=== PATIENT | female | born 1990 | race American Indian/Alaskan Native ===

== ENCOUNTER 2016-11-07 12:37 | Outpatient (CLI) | payer MEDICAID ==
[2016-11-07] MEDS ORDERED: LACTATED RINGERS 500 ML IV ONE (17:00)
== END 2016-11-07 15:43 | disposition home or self-care (01) ==
LOC: LAB 12:37 → TRG 12:37
PROVIDERS: ATTEND Advanced Practice Midwife
DX: O36.1130 Maternal care for Anti-A sensitization, third trimester, not applicable or unspecified (principal); Z3A.32 32 weeks gestation of pregnancy
CPT/HCPCS: 86850; 86900; 86901; 96372; J2790

== ENCOUNTER 2016-12-10 22:52 | Outpatient (CLI) | payer MEDICAID ==
[2016-12-10] MEDS ORDERED: LACTATED RINGERS 1,000 ML IV ONE (22:58)
[2016-12-10 23:05] VITALS: BP 121/69
[2016-12-10 23:51] LABS: Bilirubin,Urine NEG (Negative); Blood,Urine NEG (Negative); Ketones,Urine NEG (Negative); Leukocyte Esterase,Urine NEG (Negative); Mucus,Urine FEW /HPF; Nitrite,Urine NEG (Negative); Protein,Urine <15 mg/dL mg/dL (Negative); Urobilinogen,Urine < 2.0 mg/dL (<2.0)
== END 2016-12-11 00:40 | disposition home or self-care (01) ==
LOC: TRG 22:52
PROVIDERS: ATTEND Obstetrics & Gynecology
DX: O26.893 Other specified pregnancy related conditions, third trimester (principal); R10.9 Unspecified abdominal pain; Z3A.32 32 weeks gestation of pregnancy
CPT/HCPCS: 59025; 81001; 96360; J7120

== ENCOUNTER 2017-02-03 19:01 | Outpatient (CLI) | payer MEDICAID ==
[2017-02-03 19:20] VITALS: BP 105/65
--- NOTE | 2017-02-04 08:20 | Ultrasound Report ---
ULTRASOUND OB LIMITED History: well being Technique: Transabdominal ultrasound with Doppler interrogation. Gestation: Single Position: Cephalic Amniotic Fluid: Normal MAHAMED = 8.1 cm Heart Rate: 140 BPM
--- NOTE | 2017-02-04 08:20 | Ultrasound Report ---
ULTRASOUND BIOPHYSICAL PROFILE: History: well being Technique: Transabdominal ultrasound with Doppler interrogation. 2 - breathing movements 2 - movements 2 - posture and tone 2 - Qualitative amniotic fluid volume 8 - TOTAL SCORE OF POSSIBLE 8 Heart Rate (bpm) 140
== END 2017-02-03 21:00 | disposition home or self-care (01) ==
LOC: TRG 19:01
PROVIDERS: ATTEND Obstetrics & Gynecology
DX: O48.0 Post-term pregnancy (principal); Z87.891 Personal history of nicotine dependence; Z3A.40 40 weeks gestation of pregnancy
CPT/HCPCS: 59025; 76815; 76819

== ENCOUNTER 2017-08-02 15:07 | Outpatient (CLI) | payer MEDICAID ==
[2017-08-02 15:53] LABS: Alanine Aminotransferase 8 units/L (7-56); Albumin 3.1 g/dL (3.9-5); Albumin/Globulin Ratio 0.9 %; Alkaline Phosphatase 81 units/L (35-129); Anion Gap 18 mmol/L; BUN/Creatinine Ratio 16; Blood Urea Nitrogen 8 mg/dL (7-17); Carbon Dioxide 21 mmol/L (22-30); Chloride 100.7 mmol/L (98-107); Glucose 96 mg/dL (65-100); Lipase 22 units/L (13-60); Potassium 3.9 mmol/L (3.6-5.0); Sodium 136 mmol/L (137-145); Total Protein 6.5 g/dL (6.3-8.2)
[2017-08-02 15:54] LABS: Basophils % (Auto) 0.4 % (0.0-1.8); Eosinophils % (Auto) 0.4 % (0.0-4.3); Hematocrit 35.3 % (30.3-42.9); Hemoglobin 11.9 gm/dl (10.1-14.3); Mean Corpuscular HGB Conc 34 % (30-34); Mean Corpuscular Hemoglobin 31 pg (28-32); Mean Corpuscular Volume 90 fl (79-97); Platelet Count 245 K/mm3 (140-440); Red Cell Distribution Width 14.2 % (13.2-15.2); White Blood Count 8.3 K/mm3 (4.5-11.0)
[2017-08-02 15:55] LABS: Bilirubin,Urine NEG (Negative); Blood,Urine NEG (Negative); Ketones,Urine NEG (Negative); Leukocyte Esterase,Urine SM (Negative); Mucus,Urine FEW /HPF; Nitrite,Urine NEG (Negative); Protein,Urine <15 mg/dL mg/dL (Negative)
[2017-08-02] MEDS ORDERED: LACTATED RINGERS 1,000 ML IV ONE (19:57)
[2017-08-02 20:19] VITALS: BP 107/61
--- NOTE | 2017-08-02 20:53 | Ultrasound Report ---
FINAL REPORT EXAM: US OB > = 14 WEEKS FETUS HISTORY: no care- abdominal pain TECHNIQUE: Obstetrical sonographic imaging Comparison: None FINDINGS: Sonographic images demonstrate single live intrauterine gestation in transverse left maternal lie. Subjective amniotic assessment is lower limits normal. Anterior grade 0 placenta without evidence of previa. Cervical length measures 3.2 centimeters. heart rate measures 150 beats per minute. anatomic survey with estimated gestational age as follows: Biparietal diameter 4.5 centimeters, 19 weeks 3 days Head circumference 16.7 centimeters, 19 weeks 2 days Abdominal circumference 14.6 centimeters, 19 weeks 6 days Femur length 3.0 centimeters, 19 weeks 2 days Average sonographic gestational age 19 weeks 3 days with estimated due date of 12/24/2017. HC/AC 1.15 Per the Hadlock criteria, estimated weight 306 grams. IMPRESSION: Single live intrauterine gestation at 19 weeks 3 days with estimated due date of 12/24/2017. Transverse lie, maternal left. Anterior placenta without previa. Subjective amniotic fluid assessment is lower limits normal. Cervical length measures 3.2 centimeters.
== END 2017-08-02 20:28 | disposition home or self-care (01) ==
LOC: EDSTATUS 19:41 → TRG 19:46
PROVIDERS: ATTEND Obstetrics & Gynecology
DX: O26.892 Other specified pregnancy related conditions, second trimester (principal); R10.9 Unspecified abdominal pain; O32.2XX0 Maternal care for transverse and oblique lie, not applicable or unspecified; Z3A.19 19 weeks gestation of pregnancy
CPT/HCPCS: 36415; 76805; 80053; 81001; 83690; 84702; 85025

== ENCOUNTER 2018-01-26 11:39 | Emergency (ER) | payer OTHER, MEDICAID ==
[2018-01-26 12:04] VITALS: BP 100/81
[2018-01-26] MEDS ORDERED: MOTRIN PO ONE (12:24)
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
[2018-01-26] MEDS ORDERED: MOTRIN ONE (14:46)
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
== END 2018-01-26 15:33 | disposition home or self-care (01) ==
LOC: ED 11:39
DX: S39.012A Strain of muscle, fascia and tendon of lower back, initial encounter (principal); S13.4XXA Sprain of ligaments of cervical spine, initial encounter; F17.200 Nicotine dependence, unspecified, uncomplicated; V49.49XA Driver injured in collision with other motor vehicles in traffic accident, initial encounter; Y93.89 Activity, other specified; Y92.89 Other specified places as the place of occurrence of the external cause; Y99.8 Other external cause status
CPT/HCPCS: 72040; 72100

== ENCOUNTER 2019-01-15 02:56 | Emergency (ER) | payer SELFPAY ==
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
[2019-01-15] MEDS ORDERED: DILAUDID IV ONE ×2 (03:18→05:40)
[2019-01-15 03:50] LABS: Hematocrit 39.6 % (30.3-42.9); Hemoglobin 13.4 gm/dl (10.1-14.3); Mean Corpuscular HGB Conc 34 % (30-34); Mean Corpuscular Volume 92 fl (79-97); Platelet Count 227 K/mm3 (140-440); Red Blood Count 4.31 M/mm3 (3.65-5.03); Red Cell Distribution Width 14.6 % (13.2-15.2)
[2019-01-15 04:54] LABS: Alanine Aminotransferase 18 units/L (7-56); Albumin 3.8 g/dL (3.9-5); BUN/Creatinine Ratio 18; Blood Urea Nitrogen 14 mg/dL (7-17); Calcium 8.9 mg/dL (8.4-10.2); Hemolysis Index 11
--- NOTE | 2019-01-15 05:34 | Cat Scan Report ---
PROCEDURE: CT CERVICAL SPINE WO CON TECHNIQUE: Computerized tomography of the cervical spine was performed from the skull base to T1 wit hout contrast material. CT DOSE LENGTH PRODUCT: mGycm HISTORY: tomas. face pain. neck pain COMPARISONS: None . FINDINGS: C1-2: No significant abnormality . C2-3: No significant abnormality . C3-4: No significant abnormality . C4-5: No significant abnormality . C5-6: There is minimal bulging of the disc annulus with focal calcification. . C6-7: No significant abnormality . C7-T1: No significant abnormality . Fractures: None . Other: No additional findings . IMPRESSION: Minimal bulging of the C5-C6 disc annulus with focal calcification. No acute process othe rwise. This document is electronically signed by Archie Carson MD., January 15 2019 05:32:53 AM ET
--- NOTE | 2019-01-15 05:39 | Cat Scan Report ---
PROCEDURE: CT FACIAL BONES WO CON TECHNIQUE: Computerized tomography of the facial bones and soft tissues with axial and coronal secti ons performed from the cranial aspect of the frontal sinuses to the caudal portion of the mandible wi thout contrast material. Automated exposure control, adjustment of mA and/or kV according to patient size, or iterative reconstruction dose optimization techniques were utilized HISTORY: tomas. face pain. neck pain COMPARISONS: None . FINDINGS: Bones: No significant abnormality . Paranasal sinuses: Mild opacification of the right maxillary sinus . Soft tissues: No significant abnormality . Other: None . IMPRESSION: There is no evidence of an acute facial bone fracture. There is mild opacification of th e right maxillary sinus . This document is electronically signed by Heaven Cason DO., January 15 2019 05:37:41 AM ET
[2019-01-15] MEDS ORDERED: DILAUDID ONE (05:42)
[2019-01-15 07:14] VITALS: BP 132/70
[2019-01-15] MEDS ORDERED: ZOFRAN ONE (10:02)
[2019-01-15] MEDS ORDERED: ZOFRAN IV ONE (10:02)
--- NOTE | 2019-01-20 00:04 | Cat Scan Report ---
PROCEDURE: CT HEAD/BRAIN WO CON TECHNIQUE: Computerized tomography of the head was performed without contrast material. HISTORY: tomas. face pain. neck pain COMPARISONS: None . FINDINGS: Skull and scalp: Normal . Paranasal sinuses: Mild opacification of the left sphenoid sinus . Ventricles and subarachnoid spaces: Normal . Cerebrum: No evidence of hemorrhage, acute infarction or mass . Cerebellum and brainstem: No evidence of hemorrhage, acute infarction or mass . Vasculature: Normal . Other: None . ASPECTS: 10 IMPRESSION: There is no evidence of an acute intracranial process . This document is electronically signed by Heaven Cason DO., January 15 2019 05:10:06 AM ET
== END 2019-01-15 07:13 | disposition home or self-care (01) ==
LOC: ED 02:56
DX: S06.0X1A Concussion with loss of consciousness of 30 minutes or less, initial encounter (principal); G44.319 Acute post-traumatic headache, not intractable; F17.200 Nicotine dependence, unspecified, uncomplicated; F12.10 Cannabis abuse, uncomplicated; Y04.2XXA Assault by strike against or bumped into by another person, initial encounter; Y93.89 Activity, other specified; Y92.89 Other specified places as the place of occurrence of the external cause; Y99.8 Other external cause status
CPT/HCPCS: 36415; 70450; 70486; 72125; 80053; 84703; 85027; 96374; 96375; 96376; 99284; J1170; J2405

== ENCOUNTER 2019-02-28 19:39 | Emergency (ER) | payer SELFPAY ==
--- NOTE | 2019-02-28 19:50 | Event Note ---
ED Screening Note Date of service: 02/28/19 Time: 19:46 ED Screening Note: 28 y/o female comes in reporting that she is preg but does not know when her LMP or how far she is. C/O back pain and abd pain. . This initial assessment/diagnostic orders/clinical plan/treatment(s) is/are subject to change based on patients health status, clinical progression and re- assessment by fellow clinical providers in the ED. Further treatment and workup at subsequent clinical providers discretion. Patient/guardian urged not to elope from the ED as their condition may be serious if not clinically assessed and managed. Initial orders include:
[2019-02-28 20:51] LABS: Bilirubin,Urine NEG (Negative); Blood,Urine NEG (Negative); Color,Urine Yellow (Yellow); Mucus,Urine 1+ /HPF; Protein,Urine <15 mg/dL mg/dL (Negative); Urobilinogen,Urine < 2.0 mg/dL (<2.0); WBC,Urine < 1.0 /HPF (0.0-6.0)
--- NOTE | 2019-02-28 20:53 | Ultrasound Report ---
ULTRASOUND OBSTETRIC INDICATION / CLINICAL INFORMATION: abd pain. Clinical Gestational Age (GA): Unknown TECHNIQUE: Transabdominal. Patient declined transvaginal exam COMPARISON: None available. FINDINGS: GESTATIONAL SAC: Well-defined oval shape and intrauterine in location. YOLK SAC: No significant abnormality. EMBRYO/FETUS: No significant abnormality. - Hissop-Rump Length = 29.7 mm = 9 weeks, 6 day(s). - Heart Rate, beats per minute (if present) = 178 bpm ADNEXA: Left ovary appeared unremarkable. The right ovary was not identified. FREE FLUID: None. ADDITIONAL FINDINGS: None. IMPRESSION: 1. Single, living intrauterine with estimated sonographic age of 9 weeks, 6 day(s). Signer Name: Aidee Llanes MD Signed: 02/28/2019 8:49 PM Workstation Name: [id number]
[2019-02-28] MEDS ORDERED: TYLENOL PO ONE (21:26)
[2019-02-28] MEDS ORDERED: ZOFRAN ODT PO ONE (21:26)
[2019-02-28 21:54] LABS: Basophils % (Auto) 0.3 % (0.0-1.8); Eosinophils % (Auto) 0.3 % (0.0-4.3); Hematocrit 37.2 % (30.3-42.9); Hemoglobin 12.7 gm/dl (10.1-14.3); Lymphocytes # (Auto) 1.9 K/mm3 (1.2-5.4); Lymphocytes % (Auto) 24.4 % (13.4-35.0); Mean Corpuscular HGB Conc 34 % (30-34); Mean Corpuscular Hemoglobin 32 pg (28-32); Mean Corpuscular Volume 93 fl (79-97); Monocytes # (Auto) 0.3 K/mm3 (0.0-0.8); Monocytes % (Auto) 4.1 % (0.0-7.3); Platelet Count 239 K/mm3 (140-440); Red Cell Distribution Width 14.6 % (13.2-15.2)
--- NOTE | 2019-02-28 22:15 | Emergency Department Report ---
ED Abdominal Pain HPI - General Chief Complaint: Abdominal Pain Stated Complaint: PAIN/BACTERIAL INFECTION Time Seen by Provider: 02/28/19 21:10 Source: patient Mode of arrival: Ambulatory Limitations: No Limitations - History of Present Illness Initial Comments: pt is a 28 y/o aaf who presents for dsyperuina , white thick discharge maldorous, now with vaginal spotting after intercourse. pt denies n/v no fever no chills. Pt is G5, P4, A1 MD Complaint: abdominal pain, other Onset/Timin -: week(s) Migration to: no migration Severity scale (0 -10): 7 Quality: burning Consistency: intermittent Improves With: nothing Worsens With: other (intercourse ) Associated Symptoms: denies: nausea, vomiting, dysuria, hematuria - Related Data LMP (females 10-50): other ("unkown" per patient) Home Medications Medication Instructions Recorded Confirmed Last Taken Ergocalciferol [Vitamin D2] 1 cap PO QWEEK 02/07/17 02/07/17 02/04/17 21:00 1 Ferrous Sulfate [Feosol] 325 mg PO BID 02/07/17 02/07/17 02/05/17 09:00 1 Vit-Fe Fumar-FA [ 1 tab PO QDAY 02/07/17 02/07/17 02/05/17 09:00 Vitamin] 1 Previous Rx's Medication Instructions Recorded Last Taken Type Cyclobenzaprine [Flexeril] 10 mg PO QHS PRN #10 tablet 01/26/18 Unknown Rx Ibuprofen [Motrin] 600 mg PO Q8H PRN #30 tablet 01/26/18 Unknown Rx HYDROcodone/APAP 5-325 [[place] 1 each PO Q6HR PRN #12 tablet 01/15/19 Unknown Rx 5/325] Acetaminophen [Acetaminophen TAB] 650 mg PO Q6HR PRN #30 tablet 03/01/19 Unknown Rx metroNIDAZOLE [metroNIDAZOLE GEL 1 applicatio TP QHS 10 Days #1 tube 03/01/19 Unknown Rx 1% TOPICAL] Allergies Allergy/AdvReac Type Severity Reaction Status Date / Time No Known Allergies Allergy Verified 02/28/19 19:48 ED Review of Systems ROS: Stated complaint: PAIN/BACTERIAL INFECTION Other details as noted in HPI Constitutional: denies: chills, fever Eyes: denies: eye pain, eye discharge, vision change ENT: denies: ear pain, throat pain Respiratory: denies: cough, shortness of breath, wheezing Cardiovascular: denies: chest pain, palpitations Endocrine: no symptoms reported Gastrointestinal: denies: abdominal pain, nausea, diarrhea Genitourinary: dyspareunia. denies: urgency, dysuria, frequency, hematuria, discharge Musculoskeletal: denies: back pain, joint swelling, arthralgia Skin: denies: rash, lesions Neurological: denies: headache, weakness, paresthesias Psychiatric: denies: anxiety, depression Hematological/Lymphatic: denies: easy bleeding, easy bruising ED Past Medical Hx - Past Medical History Hx Hypertension: No Hx Congestive Heart Failure: No Hx Diabetes: No Hx Deep Vein Thrombosis: No Hx Renal Disease: No Hx Sickle Cell Disease: No Hx Seizures: No Hx Asthma: No Hx COPD: No Hx HIV: No Additional medical history: Vaginal delivery x 5 - Social History Smoking Status: Current Every Day Smoker Substance Use Type: Alcohol, Marijuana - Medications Home Medications: Home Medications Medication Instructions Recorded Confirmed Last Taken Type Ergocalciferol [Vitamin D2] 1 cap PO QWEEK 02/07/17 02/07/17 02/04/17 21:00 History 1 Ferrous Sulfate [Feosol] 325 mg PO BID 02/07/17 02/07/17 02/05/17 09:00 History 1 Vit-Fe Fumar-FA [ 1 tab PO QDAY 02/07/17 02/07/17 02/05/17 09:00 History Vitamin] 1 Cyclobenzaprine [Flexeril] 10 mg PO QHS PRN #10 tablet 01/26/18 Unknown Rx Ibuprofen [Motrin] 600 mg PO Q8H PRN #30 tablet 01/26/18 Unknown Rx HYDROcodone/APAP 5-325 [[place] 1 each PO Q6HR PRN #12 tablet 01/15/19 Unknown Rx 5/325] Acetaminophen [Acetaminophen TAB] 650 mg PO Q6HR PRN #30 tablet 03/01/19 Unknown Rx metroNIDAZOLE [metroNIDAZOLE GEL 1 applicatio TP QHS 10 Days #1 tube 03/01/19 Unknown Rx 1% TOPICAL] ED Physical Exam - General Limitations: No Limitations General appearance: alert, in no apparent distress - Head Head exam: Present: atraumatic, normocephalic - Eye Eye exam: Present: normal appearance, PERRL, EOMI Pupils: Present: normal accommodation - ENT ENT exam: Present: normal exam, mucous membranes moist - Neck Neck exam: Present: normal inspection, full ROM. Absent: tenderness, meningismus, lymphadenopathy, thyromegaly - Respiratory Respiratory exam: Present: normal lung sounds bilaterally. Absent: respiratory distress, wheezes, stridor, chest wall tenderness - Cardiovascular Cardiovascular Exam: Present: regular rate, normal rhythm, normal heart sounds. Absent: systolic murmur, diastolic murmur, rubs, gallop - GI/Abdominal GI/Abdominal exam: Present: soft, normal bowel sounds. Absent: distended, tenderness, bruit, hernia - Rectal Rectal exam: Present: deferred - External exam: Present: normal external exam, erythema, swelling Speculum exam: Present: erythema, vaginal discharge (white thick malodorous ). Absent: cervical discharge, vaginal bleeding, foreign body, tissue, laceration - Extremities Exam Extremities exam: Present: normal inspection, full ROM, normal capillary refill. Absent: tenderness, pedal edema, joint swelling, calf tenderness - Back Exam Back exam: Present: normal inspection, full ROM. Absent: tenderness, CVA tenderness (R), CVA tenderness (L), muscle spasm, paraspinal tenderness, vertebral tenderness, rash noted - Neurological Exam Neurological exam: Present: alert, oriented X3, CN II-XII intact, normal gait, reflexes normal. Absent: motor sensory deficit - Psychiatric Psychiatric exam: Present: normal affect, normal mood - Skin Skin exam: Present: warm, dry, intact, normal color. Absent: rash ED Course Vital Signs 02/28/19 02/28/19 02/28/19 19:45 19:46 21:44 Temperature 98.6 F 98.6 F Pulse Rate 73 75 Respiratory 16 16 16 Rate Blood Pressure 115/77 115/77 O2 Sat by Pulse 100 99 Oximetry ED Medical Decision Making - Lab Data Result diagrams: 02/28/19 19:54 Labs 02/28/19 02/28/19 02/28/19 19:52 19:54 19:54 WBC RBC Hgb Hct MCV MCH MCHC RDW Plt Count Lymph % (Auto) [place] % (Auto) Eos % (Auto) Baso % (Auto) Lymph # [place] # Eos # Baso # Seg Neutrophils % Seg Neutrophils # HCG, Quant 92086 H Urine Color Yellow Urine Turbidity Clear Urine pH 5.0 Ur Specific [place] 1.023 Urine Protein <15 mg/dl Urine Glucose (UA) Neg Urine Ketones Neg Urine Blood Neg Urine Nitrite Neg Urine Bilirubin Neg Urine Urobilinogen < 2.0 Ur Leukocyte Esterase Neg Urine WBC (Auto) < 1.0 Urine RBC (Auto) 1.0 U Epithel Cells (Auto) 1.0 Urine Mucus 1+ Blood Type A NEGATIVE Antibody Screen Negative Screen Negative Ord Rhogam Gestat Weeks >=11 02/28/19 02/28/19 19:54 19:54 WBC 7.8 RBC 4.00 Hgb 12.7 Hct 37.2 MCV 93 MCH 32 MCHC 34 RDW 14.6 Plt Count 239 Lymph % (Auto) 24.4 [place] % (Auto) 4.1 Eos % (Auto) 0.3 Baso % (Auto) 0.3 Lymph # 1.9 [place] # 0.3 Eos # 0.0 Baso # 0.0 Seg Neutrophils % 70.9 H Seg Neutrophils # 5.6 HCG, Quant Urine Color Urine Turbidity Urine pH Ur Specific [place] Urine Protein Urine Glucose (UA) Urine Ketones Urine Blood Urine Nitrite Urine Bilirubin Urine Urobilinogen Ur Leukocyte Esterase Urine WBC (Auto) Urine RBC (Auto) U Epithel Cells (Auto) Urine Mucus Blood Type A NEGATIVE Antibody Screen Screen Ord Rhogam Gestat Weeks - Medical Decision Making this is likely BV, ua; Normal , pt is A Neg, rhogam per bloodbank, pt will be dc'd with rx for metradinozole gel x 10 days follow up with OBGYN in 2 days return to ed if symptoms worsen. Critical care attestation.: If time is entered above; I have spent that time in minutes in the direct care of this critically ill patient, excluding procedure time. ED Disposition Clinical Impression: Bacterial vaginosis Disposition: DC-01 TO HOME OR SELFCARE Is pt being admited?: No Does the pt Need Aspirin: No Condition: Stable Instructions: Bacterial Vaginosis (ED), Abdominal Pain in (ED) Prescriptions: metroNIDAZOLE [metroNIDAZOLE GEL 1% TOPICAL] 1 applicatio TP QHS 10 Days #1 tube Acetaminophen [Acetaminophen TAB] 650 mg PO Q6HR PRN #30 tablet PRN Reason: Pain Referrals: [facility] [Provider Group] - 3-5 Days Forms: STI Treatment and Prevention Time of Disposition: 00:07
[2019-03-01 00:39] VITALS: BP 136/76
== END 2019-03-01 00:39 | disposition home or self-care (01) ==
LOC: ED 19:39
DX: O23.591 Infection of other part of genital tract in pregnancy, first trimester (principal); N76.0 Acute vaginitis; B96.89 Other specified bacterial agents as the cause of diseases classified elsewhere; O99.331 Smoking (tobacco) complicating pregnancy, first trimester; O99.321 Drug use complicating pregnancy, first trimester; F12.10 Cannabis abuse, uncomplicated; Z79.899 Other long term (current) drug therapy; Z3A.00 Weeks of gestation of pregnancy not specified
CPT/HCPCS: 36415; 36430; 76801; 81001; 84702; 85025; 85461; 86850; 86900; 86901; 87210; 87591; 99284; J2790; 87116; Q0162

== ENCOUNTER 2019-09-24 15:57 | Outpatient (CLI) | payer OTHER ==
[2019-09-24 16:42] LABS: Bilirubin,Urine NEG (Negative); Blood,Urine NEG (Negative); Calcium Oxalate Crystals,Urine 2+; Color,Urine Yellow (Yellow); Mucus,Urine 1+ /HPF; Protein,Urine <15 mg/dL mg/dL (Negative)
[2019-09-24 17:09] VITALS: BP 102/55
== END 2019-09-24 17:23 | disposition home or self-care (01) ==
LOC: TRG 15:57
PROVIDERS: ATTEND Obstetrics & Gynecology
DX: O26.893 Other specified pregnancy related conditions, third trimester (principal); M54.9 Dorsalgia, unspecified; Z3A.39 39 weeks gestation of pregnancy
CPT/HCPCS: 59025; 81001

== ENCOUNTER 2021-11-15 17:18 | Emergency (ER) | payer OTHER | END 2021-11-15 20:15 | disposition left against medical advice (07) | LOC: ED 17:18 | DX: R10.9 Unspecified abdominal pain (principal); Z53.21 Procedure and treatment not carried out due to patient leaving prior to being seen by health care provider ==